=== PATIENT | male | born 1975 | race Caucasian/White ===

== ENCOUNTER 2017-02-17 14:50 | Emergency (ER) | payer OTHER ==
[~2017-02-17] VITALS: Ht 167.6 cm; Wt 70.7 kg
[~2017-02-17 14:50] MED LIST: ANUSOL HC,ANUCO25 MG PR; COLACE100 MG PO; NOHOMEMEDS
[2017-02-17 17:17] LABS: HEMATOCRIT 43.6 % (38.0-50.0); MCH 29.7 PG (29.0-34.0); MCHC 35.1 G/DL (30.0-36.0); MCV 84.5 FL (86-99); MEAN PLAT.VOLUME 9.9 uM^3 (9.0-12.4); PLATELET COUNT 225 K/uL (156-360); RBC DIS.WIDTH-SD 36.6 % (39-53); RED BLOOD COUNT 5.16 M/uL (4.00-5.50)
[2017-02-17 17:27] LABS: CHLORIDE 106 mEq/L (99-109); SODIUM 143 mEq/L (136-147)
[2017-02-17 17:28] LABS: ADD MIUA? YES; BILIRUBIN NEGATIVE; BLOOD LARGE; COLOR YELLOW ((YELLOW)); GLUCOSE (STRIP) NEGATIVE; KETONES NEGATIVE; LEUKOCYTES NEGATIVE; NITRITE NEGATIVE; PROTEIN (STRIP) 30; UROBILINOGEN 0.2 MG/DL (0.2-1.0)
[2017-02-17 17:29] LABS: GLUCOSE 98 mg/dL (70-99)
[2017-02-17 17:31] LABS: ANION GAP 11 MEQ/L (2-14)
[2017-02-17 17:33] LABS: GFR ESTIMATE (CALCULATED) > 59 mL/min/
[2017-02-17 17:34] LABS: UREA NITROGEN (BUN) 12 mg/dL (9-23)
[2017-02-17 17:35] LABS: BACTERIA NONE SEEN /HPF; EPITHELIAL CELLS NONE SEEN /HPF; MUCUS 3+ /LPF; RED BLOOD CELLS TNTC /HPF (0-5); UCUL ADDED? NO; WHITE BLOOD CELLS 0-5 /HPF (0-5)
[2017-02-17] MEDS ORDERED: TORADOL10 MG PO (19:58)
[2017-02-17] MEDS ORDERED: ZOFRAN4 MG PO (20:00)
[2017-02-17] MEDS ORDERED: FLOMAX0.4 MG PO (20:00)
[2017-02-17] MEDS ORDERED: ULTRAM50 MG PO (20:00)
[2017-02-17 20:29] VITALS: BP 108/79
== END 2017-02-17 20:29 | disposition home or self-care (01) ==
LOC: EME 14:50
DX: N13.2 Hydronephrosis with renal and ureteral calculous obstruction (principal); Z87.891 Personal history of nicotine dependence
CPT/HCPCS: 74176; 80048; 81003; 85027; 99281; 99285; J1885; J3010; J7030